=== PATIENT | male | born 1970 | race Caucasian/White ===

== ENCOUNTER 2020-06-26 21:36 | Observation (INO) ==
[2020-06-26 22:11] LABS: Basophils # 0.1 K/mcL (0.0-0.2); Basophils % 0.7 %; Eosinophils # 0.9 K/mcL (0.0-0.6); Eosinophils % 8.2 %; Hemoglobin 15.1 g/dL (12.9-16.9); Immature Granulocytes % 0.8 % (0-4); Lymphocytes # 3.2 K/mcL (0.6-4.6); Lymphocytes % 27.8 %; Mean Corpuscular HGB Conc 32.1 g/dL (31.6-35.5); Mean Corpuscular Hemoglobin 28.4 pg (28.0-33.3); Mean Corpuscular Volume 88.5 fL (83.0-100.0); Mean Platelet Volume 9.2 fL (9.4-12.4); Monocytes # 1.2 K/mcL (0.0-1.3); Monocytes % 10.8 %; Neutrophils # 5.9 K/mcL (1.6-8.9); Platelet Count 245 K/mcL (140-400); Red Blood Count 5.31 M/mcL (4.19-5.50); Red Cell Distribution Width 13.2 % (11.5-14.5); Segmented Neutrophils % 51.7 %; White Blood Count 11.4 K/mcL (4.3-11.1)
[2020-06-26 22:35] LABS: Albumin 3.9 g/dL (3.5-5.7); Albumin/Globulin Ratio 1.1 (1.1-2.2); Alkaline Phosphatase 108 Units/L (34-104); Aspartate Amino Transferase 216 Units/L (13-39); BUN/Creatinine Ratio 24 (6-26); Bilirubin,Total 0.6 mg/dL (0.3-1.0); Blood Urea Nitrogen 19 mg/dL (6-20); Calcium 9.6 mg/dL (8.6-10.3); Carbon Dioxide 25 mEq/L (23-29); Chloride 98 mEq/L (98-107); Globulin 3.5 g/dL (2.4-3.5); Glucose 234 mg/dL (70-105); Osmolality,Calculated 288 (280-300); Potassium 3.8 mEq/L (3.5-5.1); Sodium 134 mEq/L (136-145); Total Protein 7.4 g/dL (6.4-8.9); eGFR For African Americans > 60 (> 60); eGFR For Non-African Americans > 60 (> 60)
[2020-06-26] MEDS ORDERED: Isovue-370 500 ML BOTTLE IVP ONE (23:00)
[2020-06-26 23:29] LABS: Alanine Aminotransferase 731 Units/L (7-52)
[2020-06-27] MEDS ORDERED: Dextrose Gel 15 GM/37.5 ML TUBE PO PRN ×2 (01:56)
[2020-06-27] MEDS ORDERED: *HR* Dextrose 50 % in Water (Vial) 50 ML VIAL IVP PRN (01:56)
[2020-06-27] MEDS ORDERED: D5% in Water 1,000 ML IVC PRN (01:56)
[2020-06-27] MEDS ORDERED: Ondansetron 4 MG/2 ML VIAL IVP PRN (02:00)
[2020-06-27] MEDS ORDERED: Naloxone 0.4 MG/ML INJ IVP PRN (02:00)
[2020-06-27 03:06] LABS: Hepatitis B Surface Antigen Nonreactive (Nonreactive)
[2020-06-27] MEDS: Baclofen 10 MG TABLET PO SCH ×4 (03:10→20:53)
[2020-06-27 03:35] LABS: Hepatitis B Core IgM Nonreactive (Nonreactive); Hepatitis C Virus Antibody Nonreactive (Nonreactive)
[2020-06-27 03:37] LABS: Hepatitis A Antibody IgM Nonreactive (Nonreactive)
[2020-06-27] MEDS: *HR* OxyCODONE Immed Rel 5 MG TABLET PO PRN (03:54)
[2020-06-27 05:13] LABS: Basophils # 0.1 K/mcL (0.0-0.2); Basophils % 0.6 %; Eosinophils # 0.8 K/mcL (0.0-0.6); Eosinophils % 7.4 %; Hematocrit 45.1 % (37.5-50.1); Hemoglobin 14.5 g/dL (12.9-16.9); Immature Granulocytes % 0.9 % (0-4); Lymphocytes # 2.1 K/mcL (0.6-4.6); Lymphocytes % 18.6 %; Mean Corpuscular HGB Conc 32.2 g/dL (31.6-35.5); Mean Corpuscular Hemoglobin 27.7 pg (28.0-33.3); Mean Corpuscular Volume 86.2 fL (83.0-100.0); Monocytes # 1.4 K/mcL (0.0-1.3); Monocytes % 12.5 %; Neutrophils # 6.7 K/mcL (1.6-8.9); Platelet Count 206 K/mcL (140-400); Red Blood Count 5.23 M/mcL (4.19-5.50); Red Cell Distribution Width 13.2 % (11.5-14.5); White Blood Count 11.1 K/mcL (4.3-11.1)
[2020-06-27] MEDS: Insulin LISPRO 300 UNITS/3 ML VIAL SUBQ SCH ×3 (05:51→16:49)
[2020-06-27] MEDS: *HR* Heparin 5,000 UNIT/ML VIAL SQ SCH ×2 (05:53→18:10)
[2020-06-27 06:46] LABS: Alanine Aminotransferase > 5000 Units/L (7-52); Albumin 3.7 g/dL (3.5-5.7); Albumin/Globulin Ratio 1.1 (1.1-2.2); Alkaline Phosphatase 92 Units/L (34-104); Aspartate Amino Transferase 233 Units/L (13-39); BUN/Creatinine Ratio 20 (6-26); Bilirubin,Total 0.6 mg/dL (0.3-1.0); Blood Urea Nitrogen 16 mg/dL (6-20); Calcium 9.7 mg/dL (8.6-10.3); Carbon Dioxide 26 mEq/L (23-29); Chloride 103 mEq/L (98-107); Globulin 3.3 g/dL (2.4-3.5); Glucose 147 mg/dL (70-105); Osmolality,Calculated 286 (280-300); Potassium 4.3 mEq/L (3.5-5.1); Sodium 136 mEq/L (136-145); eGFR For African Americans > 60 (> 60); eGFR For Non-African Americans > 60 (> 60)
[2020-06-27 10:57] LABS: Acetaminophen < 10 mcg/mL (10-20)
[2020-06-27 11:46] LABS: Amphetamine Screen,Urine Negative ng/mL (Cutoff=1000); Barbiturate Screen,Urine Negative ng/mL (Cutoff=200); Benzodiazepines Screen,Urine Negative ng/mL (Cutoff=200); Cannabinoid Screen,Urine Negative ng/mL (Cutoff = 50); Cocaine Screen,Urine Negative ng/mL (Cutoff= 300); Opiate Screen,Urine Negative ng/mL (Cutoff=300); Phencyclidine Screen,Urine Negative ng/mL (Cutoff=25)
[2020-06-27] MEDS: polyethylene glycoL 3350 17 GM POWD.PACK PO SCH (13:00)
[2020-06-27] MEDS: Aspirin Enteric Coated 81 MG Tablet PO SCH (13:01)
[2020-06-27] MEDS: Sennosides 8.6 MG TABLET PO SCH ×2 (13:01→22:00)
[2020-06-27] MEDS: lisinopriL 20 MG TABLET PO SCH (13:02)
[2020-06-27] MEDS: tiZANidine 4 MG TABLET PO SCH ×2 (15:07→20:53)
[2020-06-27 16:01] LABS: Bilirubin,Direct 0.1 mg/dL (0.0-0.2); Bilirubin,Indirect 0.5 mg/dL (0.0-1.0)
[2020-06-27] MEDS: Bisacodyl 10 MG RECTAL SUPPOSITORY RC SCH (18:10)
[2020-06-27] MEDS: Insulin DETEMIR 100 UNIT/ML X5UNITS SUBQ SCH (20:53)
[2020-06-27] MEDS ORDERED: Doxycycline 100 MG CAPSULE PO SCH (21:00)
[2020-06-28] MEDS: *HR* Heparin 5,000 UNIT/ML VIAL SQ SCH ×2 (05:04→17:17)
[2020-06-28] MEDS: Insulin LISPRO 300 UNITS/3 ML VIAL SUBQ SCH ×3 (08:19→17:17)
[2020-06-28] MEDS: Aspirin Enteric Coated 81 MG Tablet PO SCH (08:47)
[2020-06-28] MEDS: tiZANidine 4 MG TABLET PO SCH ×3 (08:47→20:49)
[2020-06-28] MEDS: Sennosides 8.6 MG TABLET PO SCH ×2 (08:48→20:50)
[2020-06-28] MEDS: polyethylene glycoL 3350 17 GM POWD.PACK PO SCH (08:48)
[2020-06-28] MEDS: lisinopriL 20 MG TABLET PO SCH (08:48)
[2020-06-28] MEDS: Baclofen 10 MG TABLET PO SCH ×3 (08:48→20:50)
[2020-06-28] MEDS: Loratadine 10 MG TABLET PO SCH (08:48)
[2020-06-28] MEDS: Fluticasone Propionate Nasal 50 MCG/SPRAY BOTTLE NS SCH (11:25)
[2020-06-28 11:34] LABS: Albumin 3.7 g/dL (3.5-5.7); Albumin/Globulin Ratio 1.2 (1.1-2.2); Bilirubin,Direct 0.1 mg/dL (0.0-0.2); Bilirubin,Indirect 0.6 mg/dL (0.0-1.0); Bilirubin,Total 0.7 mg/dL (0.3-1.0); Globulin 3.1 g/dL (2.4-3.5); Total Protein 6.8 g/dL (6.4-8.9)
[2020-06-28] MEDS: Bisacodyl 10 MG RECTAL SUPPOSITORY RC SCH (17:17)
[2020-06-28] MEDS: Insulin DETEMIR 100 UNIT/ML X5UNITS SUBQ SCH (20:49)
[2020-06-28] MEDS: Nystatin POWDER 30 GM BOTTLE TP SCH (20:50)
[2020-06-28] MEDS ORDERED: Insulin LISPRO 300 UNITS/3 ML VIAL SUBQ SCH (21:00)
[2020-06-29 00:39] LABS: Hematocrit 41.1 % (37.5-50.1); Hemoglobin 13.4 g/dL (12.9-16.9); Mean Corpuscular HGB Conc 32.6 g/dL (31.6-35.5); Mean Corpuscular Hemoglobin 28.5 pg (28.0-33.3); Mean Corpuscular Volume 87.3 fL (83.0-100.0); Mean Platelet Volume 9.3 fL (9.4-12.4); Platelet Count 200 K/mcL (140-400); Red Blood Count 4.71 M/mcL (4.19-5.50); Red Cell Distribution Width 13.2 % (11.5-14.5); White Blood Count 8.7 K/mcL (4.3-11.1)
[2020-06-29 01:23] LABS: Albumin 3.4 g/dL (3.5-5.7); Albumin/Globulin Ratio 1.2 (1.1-2.2); Alkaline Phosphatase 96 Units/L (34-104); Aspartate Amino Transferase 159 Units/L (13-39); BUN/Creatinine Ratio 23 (6-26); Bilirubin,Total 0.4 mg/dL (0.3-1.0); Blood Urea Nitrogen 20 mg/dL (6-20); Calcium 9.1 mg/dL (8.6-10.3); Carbon Dioxide 24 mEq/L (23-29); Chloride 101 mEq/L (98-107); Globulin 2.9 g/dL (2.4-3.5); Glucose 290 mg/dL (70-105); Osmolality,Calculated 291 (280-300); Potassium 4.2 mEq/L (3.5-5.1); Sodium 134 mEq/L (136-145); Total Protein 6.3 g/dL (6.4-8.9); eGFR For African Americans > 60 (> 60); eGFR For Non-African Americans > 60 (> 60)
[2020-06-29 01:38] LABS: Alanine Aminotransferase 538 Units/L (7-52)
[2020-06-29] MEDS: *HR* Heparin 5,000 UNIT/ML VIAL SQ SCH (04:59)
[2020-06-29] MEDS: *HR* OxyCODONE Immed Rel 5 MG TABLET PO PRN (05:00)
[2020-06-29] MEDS: Insulin LISPRO 300 UNITS/3 ML VIAL SUBQ SCH ×2 (08:19→13:33)
[2020-06-29] MEDS: Aspirin Enteric Coated 81 MG Tablet PO SCH (08:20)
[2020-06-29] MEDS: tiZANidine 4 MG TABLET PO SCH ×2 (08:20→13:34)
[2020-06-29] MEDS: Baclofen 10 MG TABLET PO SCH ×2 (08:20→13:34)
[2020-06-29] MEDS: Loratadine 10 MG TABLET PO SCH (08:21)
[2020-06-29] MEDS: lisinopriL 20 MG TABLET PO SCH (08:21)
[2020-06-29] MEDS: polyethylene glycoL 3350 17 GM POWD.PACK PO SCH (08:22)
[2020-06-29] MEDS: Fluticasone Propionate Nasal 50 MCG/SPRAY BOTTLE NS SCH (08:22)
[2020-06-29] MEDS: Sennosides 8.6 MG TABLET PO SCH (08:23)
[2020-06-29] MEDS: Nystatin POWDER 30 GM BOTTLE TP SCH (09:41)
[2020-06-29 11:14] VITALS: BP 109/70
[2020-06-29] MEDS: Bisacodyl 10 MG RECTAL SUPPOSITORY RC SCH (13:29)
[2020-06-30 17:29] LABS: HCV Quant Log NOT DETECTED log IU/mL
[2020-07-01 10:10] LABS: EBV Quant Copy/mL <390 cpy/mL; Epstein Barr Virus Qnt Source PLASMA
[2020-07-01 10:52] LABS: HSV 1 Glycoprotein G IgG >62.20 IV (<=0.89)
[2020-07-01 10:53] LABS: HCV Quant Interpretation NOT DETECTED (Not Detected); HSV 2 Glycoprotein G IgG 0.54 IV (<=0.89)
[2020-07-01 11:08] LABS: Cytomegalovirus DNA (PCR) NOT DETECTED; EBV Quant Interpretation NOT DETECTED (Not Detected)
== END 2020-06-29 17:01 | disposition home or self-care (01) ==
LOC: 3BNU 21:36 → EMEROOARM 21:36 → SUATTDRO 06-27 01:45 → 3BNU 06-27 02:28
PROVIDERS: ADMIT Family Medicine; ATTEND Registered Nurse

== ENCOUNTER 2020-09-06 00:57 | Inpatient (IN) ==
[2020-09-06] MEDS ORDERED: Melatonin 3 MG TABLET PO PRN (04:09)
[2020-09-06] MEDS ORDERED: *HR* HYDROcodone/Acet 5/325 mg TABLET PO PRN (04:09)
[2020-09-06] MEDS ORDERED: Naloxone 0.4 MG/ML INJ IVP PRN (04:09)
[2020-09-06] MEDS ORDERED: *HR* Dextrose 50 % in Water (Vial) 50 ML VIAL IVP PRN (04:14)
[2020-09-06] MEDS ORDERED: Dextrose Gel 15 GM/37.5 ML TUBE PO PRN ×2 (04:14)
[2020-09-06] MEDS ORDERED: D5% in Water 1,000 ML IVC PRN (04:14)
[2020-09-06] MEDS: Ringers Solution, Lactated 1,000 ML IVC SCH ×2 (04:47→11:51)
[2020-09-06] MEDS ORDERED: *HR* OxyCODONE Immed Rel 5 MG TABLET PO PRN ×2 (05:21→12:48)
[2020-09-06] MEDS ORDERED: Nystatin Cream 15 GM TUBE TP PRN (05:21)
[2020-09-06 05:36] LABS: Basophils % 0.2 %; Eosinophils # 0.1 K/mcL (0.0-0.6); Eosinophils % 0.6 %; Hematocrit 40.1 % (37.5-50.1); Hemoglobin 13.5 g/dL (12.9-16.9); Immature Granulocytes % 0.5 % (0-4); Lymphocytes # 1.6 K/mcL (0.6-4.6); Lymphocytes % 11.8 %; Mean Corpuscular HGB Conc 33.7 g/dL (31.6-35.5); Mean Corpuscular Hemoglobin 29.4 pg (28.0-33.3); Mean Corpuscular Volume 87.4 fL (83.0-100.0); Mean Platelet Volume 9.2 fL (9.4-12.4); Monocytes # 1.5 K/mcL (0.0-1.3); Monocytes % 11.6 %; Neutrophils # 9.9 K/mcL (1.6-8.9); Platelet Count 174 K/mcL (140-400); Red Blood Count 4.59 M/mcL (4.19-5.50); Red Cell Distribution Width 14.2 % (11.5-14.5); Segmented Neutrophils % 75.3 %; White Blood Count 13.1 K/mcL (4.3-11.1)
[2020-09-06 05:41] LABS: INR 1.3; Prothrombin Time 15.3 Seconds (9.4-12.1)
[2020-09-06 06:12] LABS: Alanine Aminotransferase 16 Units/L (7-52); Albumin 3.5 g/dL (3.5-5.7); Albumin/Globulin Ratio 1.3 (1.1-2.2); Alkaline Phosphatase 72 Units/L (34-104); Aspartate Amino Transferase 14 Units/L (13-39); BUN/Creatinine Ratio 22 (6-26); Bilirubin,Total 0.8 mg/dL (0.3-1.0); Blood Urea Nitrogen 19 mg/dL (6-20); Calcium 9.1 mg/dL (8.6-10.3); Carbon Dioxide 21 mEq/L (23-29); Chloride 109 mEq/L (98-107); Globulin 2.6 g/dL (2.4-3.5); Glucose 203 mg/dL (70-105); Magnesium 1.7 mg/dL (1.6-2.6); Osmolality,Calculated 292 (280-300); Potassium 4.2 mEq/L (3.5-5.1); Sodium 137 mEq/L (136-145); Total Protein 6.1 g/dL (6.4-8.9); eGFR For African Americans > 60 (> 60); eGFR For Non-African Americans > 60 (> 60)
[2020-09-06] MEDS ORDERED: Cefepime HCl 2,000 MG in 0.9 % Sodium Chloride Mini Bag 100 ML IVPB SCH (07:51)
[2020-09-06] MEDS: Baclofen 10 MG TABLET PO SCH ×3 (07:54→21:11)
[2020-09-06] MEDS: lisinopriL 20 MG TABLET PO SCH (07:54)
[2020-09-06] MEDS: tiZANidine 4 MG TABLET PO SCH ×3 (07:54→21:11)
[2020-09-06] MEDS: Magnesium Oxide 400 MG TABLET PO SCH (07:54)
[2020-09-06] MEDS: Aspirin Enteric Coated 81 MG Tablet PO SCH (07:54)
[2020-09-06] MEDS: Insulin LISPRO 300 UNITS/3 ML VIAL SUBQ SCH ×6 (08:02→21:09)
[2020-09-06] MEDS ORDERED: Cefepime HCl 2,000 MG in Water for inj. (sterile) 20 ML IVP SCH (08:55)
[2020-09-06] MEDS ORDERED: Vancomycin 2,000 MG/520 ML IV.SOLN IVPB SCH (09:00)
[2020-09-06] MEDS: Acetaminophen 325 MG TABLET PO PRN ×2 (15:16→21:23)
[2020-09-06] MEDS: Ondansetron 4 MG/2 ML VIAL IVP PRN ×2 (15:18→23:35)
[2020-09-06] MEDS: cefTRIAXone 2,000 MG in Water for inj. (sterile) 20 ML IVP SCH (15:40)
[2020-09-06] MEDS: Bisacodyl 10 MG RECTAL SUPPOSITORY RC SCH (17:29)
[2020-09-06] MEDS ORDERED: Insulin DETEMIR 100 UNIT/ML X5UNITS SUBQ SCH ×2 (21:00)
[2020-09-06] MEDS: Insulin DETEMIR 100 UNIT/ML X5UNITS SUBQ SCH (21:10)
[2020-09-07] MEDS: Ringers Solution, Lactated 1,000 ML IVC SCH ×3 (00:28→20:05)
[2020-09-07 01:06] LABS: Basophils % 0.3 %; Eosinophils # 0.1 K/mcL (0.0-0.6); Eosinophils % 0.8 %; Hematocrit 40.5 % (37.5-50.1); Hemoglobin 13.2 g/dL (12.9-16.9); Immature Granulocytes % 0.5 % (0-4); Lymphocytes # 1.3 K/mcL (0.6-4.6); Lymphocytes % 12.9 %; Mean Corpuscular HGB Conc 32.6 g/dL (31.6-35.5); Mean Corpuscular Hemoglobin 28.9 pg (28.0-33.3); Mean Corpuscular Volume 88.8 fL (83.0-100.0); Mean Platelet Volume 9.3 fL (9.4-12.4); Monocytes # 1.4 K/mcL (0.0-1.3); Monocytes % 13.8 %; Neutrophils # 7.3 K/mcL (1.6-8.9); Platelet Count 150 K/mcL (140-400); Red Blood Count 4.56 M/mcL (4.19-5.50); Red Cell Distribution Width 13.9 % (11.5-14.5); Segmented Neutrophils % 71.7 %; White Blood Count 10.1 K/mcL (4.3-11.1)
[2020-09-07 01:25] LABS: BUN/Creatinine Ratio 16 (6-26); Blood Urea Nitrogen 13 mg/dL (6-20); Calcium 9.1 mg/dL (8.6-10.3); Carbon Dioxide 22 mEq/L (23-29); Chloride 106 mEq/L (98-107); Glucose 201 mg/dL (70-105); Osmolality,Calculated 288 (280-300); Potassium 4.1 mEq/L (3.5-5.1); Sodium 136 mEq/L (136-145); eGFR For African Americans > 60 (> 60); eGFR For Non-African Americans > 60 (> 60)
[2020-09-07] MEDS ORDERED: Ondansetron ODT 4 MG TAB.RAPDIS SL ONE (03:26)
[2020-09-07] MEDS: Insulin DETEMIR 100 UNIT/ML X5UNITS SUBQ SCH ×2 (07:59→20:23)
[2020-09-07] MEDS: Insulin LISPRO 300 UNITS/3 ML VIAL SUBQ SCH ×4 (07:59→20:06)
[2020-09-07] MEDS: Magnesium Oxide 400 MG TABLET PO SCH (08:00)
[2020-09-07] MEDS: Aspirin Enteric Coated 81 MG Tablet PO SCH (08:00)
[2020-09-07] MEDS: Acetaminophen 325 MG TABLET PO PRN ×2 (08:00→16:13)
[2020-09-07] MEDS: lisinopriL 20 MG TABLET PO SCH (08:00)
[2020-09-07] MEDS: Baclofen 10 MG TABLET PO SCH ×3 (08:00→20:06)
[2020-09-07] MEDS: tiZANidine 4 MG TABLET PO SCH ×3 (08:00→20:06)
[2020-09-07] MEDS: cefTRIAXone 2,000 MG in Water for inj. (sterile) 20 ML IVP SCH (15:58)
[2020-09-07] MEDS: Bisacodyl 10 MG RECTAL SUPPOSITORY RC SCH (16:13)
[2020-09-08] MEDS: Ringers Solution, Lactated 1,000 ML IVC SCH ×3 (00:48→21:49)
[2020-09-08 07:36] LABS: Basophils % 0.4 %; Eosinophils # 0.1 K/mcL (0.0-0.6); Eosinophils % 1.7 %; Hematocrit 41.5 % (37.5-50.1); Hemoglobin 13.7 g/dL (12.9-16.9); Immature Granulocytes % 0.5 % (0-4); Lymphocytes % 25.7 %; Mean Corpuscular Hemoglobin 28.7 pg (28.0-33.3); Mean Platelet Volume 9.5 fL (9.4-12.4); Monocytes # 1.3 K/mcL (0.0-1.3); Monocytes % 17.2 %; Neutrophils # 4.2 K/mcL (1.6-8.9); Platelet Count 146 K/mcL (140-400); Red Blood Count 4.77 M/mcL (4.19-5.50); Red Cell Distribution Width 13.6 % (11.5-14.5); Segmented Neutrophils % 54.5 %; White Blood Count 7.7 K/mcL (4.3-11.1)
[2020-09-08 07:51] LABS: BUN/Creatinine Ratio 15 (6-26); Blood Urea Nitrogen 11 mg/dL (6-20); Calcium 9.2 mg/dL (8.6-10.3); Carbon Dioxide 26 mEq/L (23-29); Chloride 106 mEq/L (98-107); Glucose 111 mg/dL (70-105); Osmolality,Calculated 286 (280-300); Sodium 138 mEq/L (136-145); eGFR For African Americans > 60 (> 60); eGFR For Non-African Americans > 60 (> 60)
[2020-09-08] MEDS: Baclofen 10 MG TABLET PO SCH ×3 (09:41→21:13)
[2020-09-08] MEDS: tiZANidine 4 MG TABLET PO SCH ×3 (09:41→21:13)
[2020-09-08] MEDS: Insulin DETEMIR 100 UNIT/ML X5UNITS SUBQ SCH ×2 (09:41→21:14)
[2020-09-08] MEDS: lisinopriL 20 MG TABLET PO SCH (09:41)
[2020-09-08] MEDS: Magnesium Oxide 400 MG TABLET PO SCH (09:41)
[2020-09-08] MEDS: Aspirin Enteric Coated 81 MG Tablet PO SCH (09:41)
[2020-09-08] MEDS: Insulin LISPRO 300 UNITS/3 ML VIAL SUBQ SCH ×4 (09:42→21:14)
[2020-09-08] MEDS: cephALEXin 500 MG CAPSULE PO SCH ×2 (13:09→20:14)
[2020-09-08] MEDS: Bisacodyl 10 MG RECTAL SUPPOSITORY RC SCH (16:48)
[2020-09-09 06:17] LABS: Basophils % 0.3 %; Eosinophils # 0.4 K/mcL (0.0-0.6); Eosinophils % 4.4 %; Hematocrit 41.8 % (37.5-50.1); Hemoglobin 14.5 g/dL (12.9-16.9); Immature Granulocytes % 0.7 % (0-4); Lymphocytes # 2.6 K/mcL (0.6-4.6); Lymphocytes % 28.7 %; Mean Corpuscular HGB Conc 34.7 g/dL (31.6-35.5); Mean Corpuscular Hemoglobin 29.5 pg (28.0-33.3); Mean Platelet Volume 9.2 fL (9.4-12.4); Monocytes # 1.3 K/mcL (0.0-1.3); Monocytes % 15.1 %; Neutrophils # 4.5 K/mcL (1.6-8.9); Platelet Count 173 K/mcL (140-400); Red Blood Count 4.92 M/mcL (4.19-5.50); Red Cell Distribution Width 13.3 % (11.5-14.5); Segmented Neutrophils % 50.8 %; White Blood Count 8.9 K/mcL (4.3-11.1)
[2020-09-09 06:36] LABS: BUN/Creatinine Ratio 13 (6-26); Blood Urea Nitrogen 10 mg/dL (6-20); Calcium 9.3 mg/dL (8.6-10.3); Carbon Dioxide 25 mEq/L (23-29); Chloride 105 mEq/L (98-107); Glucose 123 mg/dL (70-105); Osmolality,Calculated 284 (280-300); Potassium 3.8 mEq/L (3.5-5.1); Sodium 137 mEq/L (136-145); eGFR For African Americans > 60 (> 60); eGFR For Non-African Americans > 60 (> 60)
[2020-09-09] MEDS ORDERED: predniSONE 20 MG TABLET PO ONE (07:24)
[2020-09-09] MEDS: Insulin LISPRO 300 UNITS/3 ML VIAL SUBQ SCH ×2 (07:34→12:46)
[2020-09-09] MEDS: Magnesium Oxide 400 MG TABLET PO SCH (08:17)
[2020-09-09] MEDS: tiZANidine 4 MG TABLET PO SCH (08:17)
[2020-09-09] MEDS: lisinopriL 20 MG TABLET PO SCH (08:18)
[2020-09-09] MEDS: Aspirin Enteric Coated 81 MG Tablet PO SCH (08:18)
[2020-09-09] MEDS: Baclofen 10 MG TABLET PO SCH (08:18)
[2020-09-09] MEDS: Insulin DETEMIR 100 UNIT/ML X5UNITS SUBQ SCH (08:18)
[2020-09-09] MEDS ORDERED: Triamcinolone Acet 0.1% CRM 15 GM TUBE TP SCH (09:00)
[2020-09-09 11:50] VITALS: BP 144/83
== END 2020-09-09 16:16 | disposition home or self-care (01) | DRG 872 ==
LOC: 2ANU → SUATTDRO 03:09
PROVIDERS: ADMIT Family Medicine; ATTEND Student in an Organized Health Care Education/Training Program